=== PATIENT | male | born 1965 | race Caucasian/White ===

== ENCOUNTER → 2021-05-26 16:53 | Outpatient (CLI) | payer SELFPAY ==
--- NOTE | 2021-05-26 17:08 | RAD_ITS ---
HISTORY: PAIN EXAMINATION/TECHNIQUE: XR Hips Bilateral with Pelvis when performed; 2 Views: AP view pelvis with AP and lateral views of bilateral hips COMPARISON: None FINDINGS: PELVIC BONES: No displaced fracture, destructive or sclerotic lesions. Note that overlapping bowel shadows may however obscure fine detail. Sacroiliac joints are unremarkable. No widening of the pubic symphisis. HIPS: Symmetric and adequately aligned bilateral hips with preserved joint spaces. No fracture or suspicious osseous lesion. SOFT TISSUES: Multiple calcified phleboliths noted. RAD/Hips B/L min 2 views w/ Pelvis IMPRESSION: No acute abnormality. at 0108 Reported and signed by: Chuck Zacarias MD Electronically Signed: Chuck Zacarias MD at 1:06 EST Tel , Service support ,
== END ==
PROVIDERS: PCP Family Medicine; Visit Provider Family Medicine
DX: R10.30 Lower abdominal pain, unspecified (principal); R26.2 Difficulty in walking, not elsewhere classified
CPT/HCPCS: 73521